=== PATIENT | male | born 1975 | race Caucasian/White ===

== ENCOUNTER 2021-05-11 06:40 | Outpatient (CLI) | payer BC, SELFPAY ==
--- NOTE | ~2021-05-11 | XR_ITS ---
EXAMINATION: XR chest 2V 05/11/2021 08:34 INDICATION: Renal mass. PROCEDURE: 2 view chest COMPARISON: No prior studies for comparison. FINDINGS: The lungs are clear. The cardiomediastinal silhouette is within normal limits. There are no pleural effusions. There is no pneumothorax suspected. IMPRESSION: 1: NO ACUTE CARDIOPULMONARY DISEASE. Reviewed, dictated and finalized at location A. [employer]
--- NOTE | ~2021-05-11 | MR_ITS ---
EXAMINATION: MR abdomen wo/w con INDICATION: Renal mass TECHNIQUE: Coronal SSFSE ARC, WATER:coronal LAVA-FLEX, Coronal 2D FIESTA FatSat, Axial SSFSE BH ARC, Axial 3D DualEcho BH, Axial SSFSE-IR, Axial DWI b=500, Axial 2D FIESTA FatSat, pre and dynamic postco ntrast Axial LAVA ARC, postcontrast Coronal In and Opposed phase LAVA FLEX COMPARISON: None available CONTRAST: Multihance, 14 cc FINDINGS: There is a 7.4 x 6.1 cm mass of the right kidney upper pole which demonstrates heterogeneou s T1 and T2 signal intensity. The mass demonstrates enhancement after contrast administration. The ri ght renal vein appears unremarkable although postcontrast sequences are slightly limited by respirato ry motion. There is a 5.2 cm cyst of the right kidney lower pole. There is a 9 mm cyst of the left ki dney. The liver, spleen, pancreas, gallbladder, and adrenal glands are normal. There are no pathologi kaycee enlarged abdominal lymph nodes. No dilated loops of bowel are evident. IMPRESSION: 1. Mass in the upper pole of the right kidney consistent with renal cell carcinoma although different ial would include oncocytoma. Reviewed, dictated and finalized at location B. [employer] IMPRESSION: 1. Mass in the upper pole of the right kidney consistent with renal cell carcin matthew although differential would include oncocytoma.
[2021-05-11 07:13] LABS: Estimated Glomerular Filt Rate > 60
== END 2021-05-11 06:41 | disposition home or self-care (01) ==
LOC: ANHIMG 06:43
PROVIDERS: Visit Provider Urology
DX: N28.89 Other specified disorders of kidney and ureter (principal)
CPT/HCPCS: 71046; 74183; A9577

== ENCOUNTER 2021-05-29 08:58 | Outpatient (CLI) | payer BC, SELFPAY ==
--- NOTE | 2021-05-29 09:45 | ECG_ITS ---
Measurements Intervals [place] Rate: 72 P: 76 PA: 183 QRS: 69 QRSD: 106 T: 66 QT: 387 QTc: 424 Interpretive Statements SINUS RHYTHM POSSIBLE LEFT ATRIAL ENLARGEMENT BORDERLINE R WAVE PROGRESSION, ANTERIOR LEADS BASELINE ARTIFACT- I, II, III, AVR, AVL, AVF BORDERLINE ECG Electronically Signed On 05-29-2021 10:40:21 [employer]EN[employer]AL [employer] TECH by Aftab Rose D.O.
[2021-05-29 10:21] LABS: Basophils Absolute Auto 0.1 K/mm3 (0.0-0.1); Basophils Percent Auto 1.2 % (0.2-1.2); Eosinophils Absolute Auto 0.4 K/mm3 (0-0.3); Eosinophils Percent Auto 4.6 % (0-4.4); Hematocrit 47.5 % (42.0-52.0); Immature Granulocyte Absolute 0.03 K/mm3 (0.00-0.031); Immature Granulocyte Percent A 0.4 % (0-0.5); Lymphocytes Absolute Auto 1.85 K/mm3 (0.9-3.2); Mean Corpuscular HGB Conc 35.8 g/dl (32-36); Mean Corpuscular Hemoglobin 32.8 pg (26-34); Mean Corpuscular Volume 91.7 fl (80-100); Mean Platelet Volume 11.4 fl (7.4-10.4); Monocytes Absolute Auto 0.7 K/mm3 (0.1-0.6); Monocytes Percent Auto 8.7 % (2.6-8.5); Neutrophils Absolute Auto 5.3 K/mm3 (1.3-6.7); Neutrophils Percent Auto 63.1 % (45.5-73.1); Platelet Count Result 244 k/mm3 (150-375); Red Blood Count 5.18 M/mm3 (4.6-6.20); Red Cell Distribution Width 12.1 % (11.5-14.5); White Blood Count 8.4 K/mm3 (4.5-10.0)
[2021-05-29 10:32] LABS: INR 0.9; Prothrombin Time 12.4 Seconds (11.1-14.7)
[2021-05-29 10:33] LABS: Partial Thromboplastin Time 37.4 SECONDS (22.3-36.8)
[2021-05-29 10:48] LABS: Alanine Aminotransferase 16 U/L (4-50); Albumin Level 4.6 g/dL (3.5-5.1); Alkaline Phosphatase 65 U/L (38-126); Anion Gap 8 mmol/L (8-16); Aspartate Amino Transferase 22 U/L (17-59); Bilirubin,Total 0.6 mg/dL (0.2-1.3); Blood Urea Nitrogen 10 mg/dL (9-20); Calcium 10.1 mg/dL (8.4-10.2); Carbon Dioxide 35 mmol/L (22-30); Chloride 93 mmol/L (98-107); Estimated Glomerular Filt Rate > 60; Glucose 92 mg/dL (65-110); Potassium 2.5 mmol/L (3.4-5.0); Sodium 136 mmol/L (137-145)
== END 2021-05-29 08:59 | disposition home or self-care (01) ==
LOC: ANHSURGERY 09:04
PROVIDERS: PCP Internal Medicine; Visit Provider Urology
DX: N28.89 Other specified disorders of kidney and ureter (principal); Z01.818 Encounter for other preprocedural examination; R94.31 Abnormal electrocardiogram [ECG] [EKG]
CPT/HCPCS: 36415; 80053; 85025; 85610; 85730; 86850; 86900; 86901; 87086; 93005

== ENCOUNTER 2021-06-06 01:54 | Day surgery (SDC) | payer BC, SELFPAY ==
[2021-05-29 09:14] VITALS: BP 131/78; PULSE 75; RESP 16; TEMP 37.1; O2SAT 96; BMI 20.4
--- NOTE | 2021-05-29 09:25 | PC.NURSE ---
Report to the Outpatient Waiting Room, entrance under the green pavilion located off [facility], at time __6:00AM on date ___06/06/21____. OR Time: ____7:30AM____. - You and your visitor will be asked a series of questions to screen for COVID 19 for your protection. - A mask is required within the hospital. - Only one visitor is allowed at this time. Patient visitors will be guided where to wait when not with patient. Preoperative COVID Testing Requirements: No COVID Test needed if: (proof is required; if not received patient will have Rapid Test prior to entry) - Patient has received COVID Vaccine at least 14 days prior to procedure date or - Patient has positive COVID test result within last 90 days of surgery date. COVID Test needed if above criteria is not met If not COVID vaccinated a COVID test must be conducted within 72 hours of surgery and patient is asked to isolate self from time of testing until procedure. You will go to the [facility] for your COVID testing. The [facility] is located at the corner of [address] [facility]. You will only be called if COVID results are positive and your surgeon may reschedule your elective surgery date. Patients may have clear liquids (water, carbonated beverages, clear teas, apple juice) until 3 hours prior to surgery with a maximum of 20 ounces. - No food from midnight until time of surgery - Infants may have breast milk until 4 hours before surgery, infant formula 6 hours prior to surgery. - Children will be allowed to drink immediately following surgery. If applicable, please bring a bottle or sippy cup to assist with drinking. Juice, water, soda, and popsicles are readily available. For infants on formula, please bring formula the day of surgery. Pacifiers are allowed. Take the following medications with a SIP of water the morning of surgery: ____LEVOTHYROXINE, TRAMADOL NEEDED FOR PAIN Medications to discontinue per physician HOLD ALEVE 7 DAYS PRE-OP Date to take last dose 07/29/20 Please no make-up, nail algerian, hairspray, perfume, deodorant, or body powder the day of surgery. No jewelry (including any body piercings) or valuables the day of surgery, leave them at home. Please take a shower or bath the night before, or the morning of, surgery with an antibacterial soap. Wear comfortable, loose fitting clothing. Children are encouraged to wear pajamas. - Jewelry must be removed prior to entering the operating room. Rings and piercings that are not removed may be cut off. - The hospital will not accept responsibility for valuables. - Please leave all valuables, including medications, at home the day of surgery. If you are going home after surgery, a licensed [employer] company driver must drive you home. - NO public transportation without another adult. - We recommend that an adult stay with you for 24 hours following discharge. - We also recommend that you do not drive, make important decision, drink alcoholic beverages, or take any drugs that were not prescribed by your health care provider for at least 24 hours after your discharge time. For Pediatric surgeries, we recommend two adults accompany the child home (only one inside the building at this time). Follow any additional instructions given to you from your surgeon. Telephone instructions given to __PATIENT and asked if any additional questions and then verbalized understanding. Patient advised to call surgeon office or pre surgery nurse liaison [phone] if any additional questions.
[2021-06-06] VITALS (14 sets, daily range): BP systolic 124–174; BP diastolic 70–95; PULSE 57–90; RESP 10–20; TEMP 36.2–36.9; O2SAT 94–100
[2021-06-06] MEDS: LACTATED RINGERS 1,000 ML 30 ML IV CONT ×2 (06:35→10:41)
--- NOTE | 2021-06-06 07:04 | WPDANESEPPF ---
Anes - Initial Pre Proc Eval Procedure: Operation Date: 06/06/21 07:30 Proposed Procedures p Hand-Assisted Laparoscopic Right Nephrectomy - Kali Diego MD Date/Time: 06/06/21 07:04 Surgeon: Kali Diego MD Pre Op Diagnosis: right renal mass Patient Data Age: 46 Gender: M Height: 1.85 m Weight: 70.3 kg Last Vital Signs Temp 37.1 C 05/29/21 09:14 Pulse 75 05/29/21 09:14 Resp 16 05/29/21 09:14 BP 131/78 05/29/21 09:14 Pulse Ox 96 05/29/21 09:14 Allergies Allergy/AdvReac Type Severity Reaction Status Date / Time No Known Allergies Allergy Verified 06/06/21 07:03 Home Medications Medication Instructions Recorded Confirmed Type hydrochlorothiazide 25 mg PO QAM 05/29/21 06/06/21 History levothyroxine 88 mcg PO QAM 05/29/21 06/06/21 History naproxen sodium [Aleve] 220 mg PO TID PRN 05/29/21 06/06/21 History naproxen-diphenhydramine [Aleve PM] 2 tablet PO HS 05/29/21 06/06/21 History topiramate 25 mg PO BID 05/29/21 06/06/21 History tramadol 50 mg PO Q6-8H PRN 05/29/21 06/06/21 History trazodone 50 mg PO HS 05/29/21 06/06/21 History Laboratory Tests 06/06/21 06/06/21 06:50 06:54 PT Pending INR Pending APTT Pending Potassium Pending Patient hx anesthesia problems: none Family hx anesthesia problems: none Results Review: All pre-operative results and documents have been reviewed as part of the pre-operative evaluation. [facility] Past Medical History Medical History (Updated 06/06/21 @ 07:05 by Leif Stallings MD) Depression Hypothyroid Renal cancer Social History Social History Smoking packs per day: 1.5 Smoking cigarettes per day: 30.0 Years smoked: 30 Smoking pack-years: 45.00 Smoking status: Current every day smoker Tobacco type: cigarettes Alcohol intake: current Drinks per week: 6 Substance use: never Living arrangements: with family Additional living arrangements comments: MOTHER AND DAUGHTER Spiritual care concerns: No Anes - Eval Final PreProcedure Day of Procedure 06/06/21 07:04 Patient weight: normal Heart: regular rate and rhythm Lungs: decreased breath sounds Airway: Mallampati scale class II Neurological: alert and oriented Last oral intake: >/= 8 hours ASA classification: III Emergent: no Anesthetic plan: proceed Anesthesia type and monitoring: general ETT and standard monitoring Results Review: All pre-operative results and documents have been reviewed as part of the pre-operative evaluation. Informed Consent: The patient's anesthetic plan and its attendant risks and benefits were discussed with the patient/family/POA. Questions were solicited and answers provided to the satisfaction of the patient/family/POA.
--- NOTE | 2021-06-06 07:23 | WPDHPUPDATE1 ---
History and Physical Update Update Date/Time: 06/06/21 07:23 History and Physical has been reviewed, including an updated exam of the patient. There are NO changes in the patient's condition. Risks, benefits, and alternatives have been discussed and questions answered. Patient agrees to proceed with procedure. Proceed with hand assist right radical nephrectomy
[2021-06-06] MEDS: ceFAZolin 2 GM/D5W 50 ML 2 GM/50 ML BAG IVPB (07:32)
[2021-06-06 07:40] LABS: Potassium 2.6 mmol/L (3.4-5.0)
[2021-06-06] MEDS: BUPIVACAINE HCL 0.5% PF 30 ML VIAL INFILTRATE (08:10)
--- NOTE | 2021-06-06 08:12 | SUR.OPER ---
pre op/Dr Stallings and Dr Diego aware of pending Coagulation and K+/to proceed to OR. On arrival to OR pre op relayed critical lab of K+ being 2.6/Dr Stallings informed and will address end of Surgery/Dr Diego aware of Dr Valdes decision. To proceed with surgery.
[2021-06-06 08:18] LABS: Prothrombin Time 13.3 Seconds (11.1-14.7)
[2021-06-06 08:19] LABS: Partial Thromboplastin Time 35.2 SECONDS (22.3-36.8)
--- NOTE | 2021-06-06 10:25 | W.PM.PROC2 ---
Procedure Note - Detailed Date of Procedure 06/06/21 Pre-op Diagnosis right renal mass Post-op Diagnosis same Procedure Performed Hand assisted laparoscopic right radical nephrectomy Surgeon Kali Diego MD Anesthesia general Description of Procedure Patient is taken to the operative suite correctly identified. Once anesthesia was obtained was placed in the lateral decubitus position with the right side marked correctly up. All pressure points were padded. Mcdonald catheter had been placed and inflated with 10 cc of sterile water. He was prepped and draped usual sterile fashion. Midline incision was made supraumbilical carried down to the rectus fascia. The abdominal cavity was entered. GelPort was placed in the abdomen insufflated to 15 mmHg pressure. Two other working ports were then placed in the 3rd working port to retract the liver was made. The colon was reflected and the duodenum Kocherized. The ureter was dissected and the kidney was lifted off the psoas muscle. We worked our way up to the renal hilum. The renal artery was visualized and clipped 3 times proximally and twice distally. He had a little accessory artery to the inferior pole which we also some leak clips. The renal vein was then transected using a endovascular stapler. The adrenal was also removed with the specimen. All superior and lateral attachments were then transected. Tisseel was placed over the renal hilar area and the adrenal bed. Surgicel was then placed over that. Specimen was brought out through the midline incision. The lap count needle count sponge counts were correct. Rectus fascia was closed using double looped PDS in a running fashion. Subcuticular stitches were then placed. Patient is taken recovery room stable condition. Estimated Blood Loss 25 Drains No Packing No Pathology yes Complications No immediate complications Condition stable Disposition PACU
--- NOTE | 2021-06-06 11:06 | SUR.PHASEI ---
Patient is stable and Dr. Stallings does not want to treat 2.6 K+ at this time.
[2021-06-06] MEDS: fentaNYL CITRATE INJ (*CRX) 100 MCG/2 ML VIAL 25 MCG IV PUSH ×3 (11:23→11:32)
--- NOTE | 2021-06-06 11:35 | SUR.PHASEI ---
RN attempted to call anesthesia about BP, but there was no answer.
--- NOTE | 2021-06-06 11:48 | SUR.PHASEI ---
Dr. Stallings aware of elevated BP and does not want to treat at this time.
--- NOTE | 2021-06-06 12:22 | SUR.PREOP ---
0745: DR. LUNDBERG CALLED IN OR W/ REPEAT K+ RESULTS 2.6. PT IN OR NOW. DR. LUNDBERG WAS AWARE OF PENDING RESULTS WHEN PATIENT TAKEN TO OR.
--- NOTE | 2021-06-06 12:44 | ADMGEN ---
This patient, Adelfo Narvaez, was admitted to room 249. Patient/family oriented to hospital policies and general routines including ID bracelet, bed and alarms, visiting hours, pain management, procedures, bathroom and other care routines, personal items, smoking policy, room service/diet, and visiting hours. Information on how to activate the Rapid Response Team has been discussed. Patient/Family are encouraged to report perceived risks to care and to ask questions if they do not understand what they are told or what they should do.
[2021-06-06] MEDS: HYDROmorphone HCL INJ (*CRX) 1 MG/ML SYR 0.5 MG IV PUSH ×2 (12:59→17:08)
[2021-06-06] MEDS: DEXTROSE 5%/LACTATED RINGERS 1,000 ML 150 ML IV CONT ×2 (13:11→20:31)
[2021-06-06 13:14] LABS: Hematocrit 43.9 % (42.0-52.0); Hemoglobin 15.6 g/dL (14.0-18.0)
[2021-06-06 13:29] LABS: Anion Gap 7 mmol/L (8-16); Blood Urea Nitrogen 11 mg/dL (9-20); Calcium 9.1 mg/dL (8.4-10.2); Carbon Dioxide 29 mmol/L (22-30); Chloride 96 mmol/L (98-107); Estimated CRCL calculation 56 ml/min; Estimated Glomerular Filt Rate 54; Glucose 127 mg/dL (65-110); Sodium 132 mmol/L (137-145)
[2021-06-06] MEDS: hydroCHLOROthiazide 25 MG TABLET PO (16:22)
[2021-06-06] MEDS: POTASSIUM CHLORIDE 10 MEQ TABLET.ER PO (16:23)
[2021-06-06] MEDS: TOPIRAMATE 25 MG TABLET PO (16:24)
[2021-06-06] MEDS: traZODone HCL 50 MG TABLET PO (20:31)
[2021-06-07] VITALS: PULSE 65; RESP 20; O2SAT 99
[2021-06-07] MEDS: HYDROcodone/acetaminophen (*CRX) 5-325 MG TABLET 2 TAB PO ×2 (01:14→12:06)
[2021-06-07 02:06] VITALS: BP 125/54; PULSE 62; RESP 21; TEMP 36.6; O2SAT 100
[2021-06-07] MEDS: DEXTROSE 5%/LACTATED RINGERS 1,000 ML 150 ML IV CONT ×2 (03:35→10:34)
[2021-06-07] MEDS: LEVOTHYROXINE SODIUM 88 MCG TABLET PO (06:05)
[2021-06-07 06:06] VITALS: BP 127/57; PULSE 61; RESP 21; TEMP 36.6; O2SAT 100
[2021-06-07] MEDS: HYDROcodone/acetaminophen (*CRX) 5-325 MG TABLET 1 TAB PO (06:09)
[2021-06-07 06:17] LABS: Basophils Absolute Auto 0.1 K/mm3 (0.0-0.1); Basophils Percent Auto 0.4 % (0.2-1.2); Eosinophils Absolute Auto 0.1 K/mm3 (0-0.3); Eosinophils Percent Auto 0.5 % (0-4.4); Hematocrit 39.3 % (42.0-52.0); Immature Granulocyte Absolute 0.07 K/mm3 (0.00-0.031); Immature Granulocyte Percent A 0.4 % (0-0.5); Lymphocytes Absolute Auto 1.96 K/mm3 (0.9-3.2); Lymphocytes Percent Auto 12.1 % (18.3-44.2); Mean Corpuscular HGB Conc 35.6 g/dl (32-36); Mean Corpuscular Hemoglobin 32.3 pg (26-34); Mean Corpuscular Volume 90.6 fl (80-100); Mean Platelet Volume 11.4 fl (7.4-10.4); Monocytes Absolute Auto 1.4 K/mm3 (0.1-0.6); Monocytes Percent Auto 8.9 % (2.6-8.5); Neutrophils Absolute Auto 12.6 K/mm3 (1.3-6.7); Neutrophils Percent Auto 77.7 % (45.5-73.1); Platelet Count Result 219 k/mm3 (150-375); Red Blood Count 4.34 M/mm3 (4.6-6.20); Red Cell Distribution Width 12.1 % (11.5-14.5); White Blood Count 16.3 K/mm3 (4.5-10.0)
[2021-06-07 06:29] LABS: Anion Gap 7 mmol/L (8-16); Blood Urea Nitrogen 9 mg/dL (9-20); Calcium 9.1 mg/dL (8.4-10.2); Carbon Dioxide 30 mmol/L (22-30); Chloride 96 mmol/L (98-107); Estimated CRCL calculation 52 ml/min; Estimated Glomerular Filt Rate 50; Glucose 128 mg/dL (65-110); Potassium 2.8 mmol/L (3.4-5.0); Sodium 133 mmol/L (137-145)
--- NOTE | 2021-06-07 07:59 | WPDUROPN2 ---
Progress Note: A&P Assessment and Plan (1) Right renal mass: Code(s): N28.89 - Other specified disorders of kidney and ureter Status: Acute Assessment and Plan: Doing well postoperative day 1. Will start to increase activity. Remove Mcdonald catheter. Potassium level low at 2.8. Will replenish and recheck level later this afternoon. Possible discharge later today or tomorrow if continues to improve Subjective Subjective Date/Time Seen: 06/07/21 07:59 Post Op day: 1 (Hand assist right radical nephrectomy) Principal diagnosis: Right renal mass Interval history: Memo over well as doing well today. He has been up in a chair last night. No significant complaints at this time. Urine is fairly clear. Review of Systems Review of Systems: All systems reviewed & are unremarkable except as noted in HPI and below Exam Const: General: cooperative and no acute distress Resp: Effort & Inspection: normal respiratory effort Cardio: Rate: regular rate Rhythm: regular rhythm : Scrotum: other (Has some swelling from laparoscopic procedure.) Objective Data Vital Signs Vital Signs: Vital Signs - 24 hr 06/06/21 10:41 06/06/21 10:55 06/06/21 11:10 Temperature 36.6 C Pulse Rate 86 81 89 Respiratory Rate 11 L 10 L 12 Blood Pressure 156/86 H 170/95 H 174/94 H Pulse Oximetry 99 100 100 06/06/21 11:25 06/06/21 11:40 06/06/21 11:55 Temperature Pulse Rate 85 80 81 Respiratory Rate 18 16 10 L Blood Pressure 171/90 H 159/83 H 155/80 H Pulse Oximetry 100 94 96 06/06/21 12:10 06/06/21 12:40 06/06/21 12:55 Temperature 36.2 C L 36.4 C Pulse Rate 78 71 78 Respiratory Rate 10 L 14 16 Blood Pressure 153/70 H 141/72 H 130/70 Pulse Oximetry 95 95 95 06/06/21 13:25 06/06/21 14:25 06/06/21 18:30 Temperature 36.2 C L 36.3 C L 36.4 C L Pulse Rate 67 66 57 L Respiratory Rate 14 18 18 Blood Pressure 128/74 140/79 145/80 H Pulse Oximetry 96 100 100 06/06/21 22:06 06/07/21 00:00 06/07/21 02:06 Temperature 36.9 C 36.6 C Pulse Rate 65 65 62 Respiratory Rate 20 20 21 H Blood Pressure 139/71 125/54 L Pulse Oximetry 99 99 100 06/07/21 06:06 Temperature 36.6 C Pulse Rate 61 Respiratory Rate 21 H Blood Pressure 127/57 L Pulse Oximetry 100 Intake/Output Intake/Output: Intake & Output 06/04/21 06/05/21 06/06/21 06/07/21 23:59 23:59 23:59 23:59 Intake Total 2980 2000 Output Total 230 1800 Balance 2750 200 Meds/Results Medications: Active Medications Generic Name Dose Route Start Last Admin Trade Name Freq PRN Reason Stop Dose Admin Hydrocodone Bitart/Acetaminophen 1 tab 06/07/21 05:00 06/07/21 06:09 Hydrocodone/Acetaminophen (*Crx) 5-325 Mg Tablet PO 1 tab Q4H PRN Administration Pain Rated 1-3 Hydrocodone Bitart/Acetaminophen 2 tab 06/07/21 05:00 06/07/21 01:14 Hydrocodone/Acetaminophen (*Crx) 5-325 Mg Tablet PO 2 tab Q4H PRN Administration Pain 4-10 Hydrochlorothiazide 25 mg 06/06/21 09:00 06/06/21 16:22 Hydrochlorothiazide 25 Mg Tablet PO 25 mg QAM RACHEAL Administration Hydromorphone HCl 0.5 mg 06/06/21 17:59 Hydromorphone Hcl Inj (*Crx) 1 Mg/Ml Syr IV PUSH Q2H PRN Breakthrough Pain Dextrose/Lactated Ringer's 1,000 mls @ 150 mls/hr 06/06/21 12:21 06/07/21 03:35 Dextrose 5%/Lactated Ringers IV CONT 150 mls/hr .Q6H40M RACHEAL Administration Potassium Chloride 100 mls @ 50 mls/hr 06/07/21 07:48 Kcl 20 Meq/Sw 100 Ml IVPB 06/07/21 09:47 ONCE ONE Potassium Chloride 100 mls @ 50 mls/hr 06/07/21 07:48 Kcl 20 Meq/Sw 100 Ml IVPB 06/07/21 09:47 ONCE ONE Levothyroxine Sodium 88 mcg 06/07/21 06:30 06/07/21 06:05 Levothyroxine Sodium 88 Mcg Tablet PO 88 mcg DAILY@0630 RACHEAL Administration Naloxone HCl 0.1 mg 12/07/21 12:21 Naloxone Hcl 0.4 Mg/Ml Vial IV PUSH Q2M PRN Opiate Reversal Potassium Chloride 10 meq 06/06/21 17:00 06/06/21 16:23 Potassium Chloride 10 Meq Ta
[2021-06-07] MEDS: hydroCHLOROthiazide 25 MG TABLET PO (08:31)
[2021-06-07] MEDS: POTASSIUM CHLORIDE 10 MEQ TABLET.ER PO ×2 (08:31→16:43)
[2021-06-07] MEDS: TOPIRAMATE 25 MG TABLET PO ×2 (08:32→16:44)
[2021-06-07] MEDS: HYDROmorphone HCL INJ (*CRX) 1 MG/ML SYR 0.5 MG IV PUSH (08:37)
--- NOTE | 2021-06-07 08:58 | P.PNAN_ITS ---
Anes - Prog Note Post-Op Date/Time: 06/07/21 08:58 Cardiovascular status: normal Respiratory status: normal Airway patency: baseline Mental status: baseline Post-Op hydration status: normal Vital Signs: Last Vital Signs Temp 36.6 C 06/07/21 06:06 Pulse 61 06/07/21 06:06 Resp 21 H 06/07/21 06:06 BP 127/57 L 06/07/21 06:06 Pulse Ox 100 06/07/21 06:06 Pain Score (VAS): 3 I/O: Intake & Output 06/06/21 06/07/21 06/07/21 23:59 07:59 15:59 Intake Total 2180 2000 Output Total 200 1800 Balance 1980 200 Laboratory Tests 06/07/21 05:55 06/07/21 05:55 06/06/21 06/06/21 06/07/21 12:52 12:52 05:55 WBC 16.3 H RBC 4.34 L Hgb 15.6 14.0 Hct 43.9 39.3 L MCV 90.6 MCH 32.3 MCHC 35.6 RDW 12.1 Plt Count 219 MPV 11.4 H Immature Gran % (Auto) 0.4 Neut % (Auto) 77.7 H Lymph % (Auto) 12.1 L [place] % (Auto) 8.9 H Eos % (Auto) 0.5 Baso % (Auto) 0.4 Lymph # (Auto) 1.96 [place] # (Auto) 1.4 H Eos # (Auto) 0.1 Baso # (Auto) 0.1 Abs Immat Gran (auto) 0.07 H Absolute Neuts (auto) 12.6 H Absolute Nucleated RBC 0.0 Nucleated RBC % 0.0 Sodium 132 L Potassium 3.0 L Chloride 96 L Carbon Dioxide 29 Anion Gap 7 L BUN 11 Creatinine 1.40 H Estim Creat Clear Calc 56 Estimated GFR 54 L Glucose 127 H Calcium 9.1 06/07/21 05:55 WBC RBC Hgb Hct MCV MCH MCHC RDW Plt Count MPV Immature Gran % (Auto) Neut % (Auto) Lymph % (Auto) [place] % (Auto) Eos % (Auto) Baso % (Auto) Lymph # (Auto) [place] # (Auto) Eos # (Auto) Baso # (Auto) Abs Immat Gran (auto) Absolute Neuts (auto) Absolute Nucleated RBC Nucleated RBC % Sodium 133 L Potassium 2.8 L* Chloride 96 L Carbon Dioxide 30 Anion Gap 7 L BUN 9 Creatinine 1.50 H Estim Creat Clear Calc 52 Estimated GFR 50 L Glucose 128 H Calcium 9.1 Post-procedural complaints: none Patient Feedback: Patient satisfied with anesthetic care.
[2021-06-07] MEDS: KCL 20 MEQ/SW 100 ML 100 ML 50 MEQ IVPB ×2 (09:55→12:06)
[2021-06-07 10:20] VITALS: BP 125/68; PULSE 56; RESP 18; TEMP 36.4; O2SAT 99
--- NOTE | 2021-06-07 11:35 | PCCCNOTE ---
On 06/07/21, the student, [Brittany Fair ], provided care and completed Tengion documentation on this patient. I have reviewed the student's documentation and agree with the findings.
[2021-06-07 14:45] VITALS: BP 133/65; PULSE 64; RESP 16; TEMP 36.7; O2SAT 99
[2021-06-07 15:01] LABS: Potassium 3.3 mmol/L (3.4-5.0)
[2021-06-07] MEDS: POTASSIUM CHLORIDE 20 MEQ TABLET 40 MEQ PO (16:44)
== END 2021-06-07 17:51 | disposition home or self-care (01) ==
LOC: ANHSURGERY 06:12 → ANH2MED 12:47
PROVIDERS: Nurse Practitioner Adult Health; PCP Internal Medicine; Visit Provider Urology
PROC: (CPT 50545; principal; 2021-06-06 07:30)
DX: C64.1 Malignant neoplasm of right kidney, except renal pelvis (principal); E03.9 Hypothyroidism, unspecified; F32.9 Major depressive disorder, single episode, unspecified; F17.210 Nicotine dependence, cigarettes, uncomplicated
CPT/HCPCS: 50545; 36415; 80048; 80053; 84132; 85014; 85018; 85025; 85610; 85730; 86850; 86900; 86901; 87086; 88307; 93005; A9270; J0690; J1100; J1170; J2250; J2405; J2704; J2710; J3010; J3480; J7120; J7121